=== PATIENT | female | born 2000 | race Hispanic/Latino ===

== ENCOUNTER 2020-02-23 05:50 | Emergency (ER) | payer BC, OTHER ==
[~2020-02-23] VITALS: Ht 165.1 cm; Wt 113.4 kg
[2020-02-23] MEDS ORDERED: LIDOCAINE VISC 2% SOLN 15 ML UDC ONE (06:24)
[2020-02-23] MEDS ORDERED: MAGNESIUM/ALUMINUM/SIMETHICONE 30 ML UDC ONE (06:24)
[2020-02-23] MEDS ORDERED: BELLADONNA ALK/PHENOBARBITAL 5 ML UDC ONE (06:24)
[2020-02-23] MEDS ORDERED: DONNATAL/LIDOCAINE/MAALOX 30 ML SUSP PO ONE (06:45)
[2020-02-23] MEDS ORDERED: BACTRIM DS TAB1 EACH PO (07:11)
== END 2020-02-23 07:54 | disposition home or self-care (01) ==
LOC: FSED 07:12
DX: R10.13 Epigastric pain (principal); R10.11 Right upper quadrant pain; N39.0 Urinary tract infection, site not specified
CPT/HCPCS: 81003; 81025; 99283

== ENCOUNTER 2020-10-22 19:19 | Emergency (ER) | payer BC, OTHER ==
[~2020-10-22] VITALS: Ht 165.1 cm; Wt 132.4 kg
[~2020-10-22 19:19] MED LIST: BACTRIM DS TAB1 EACH PO
[2020-10-22] MEDS ORDERED: ALBUTEROL/IPRATROPIUM 3 ML NEB ONE (19:58)
[2020-10-22] MEDS ORDERED: PROVENTIL HFA6.7 GM INH (20:30)
[2020-10-22] MEDS ORDERED: AZITHROMYCIN250 MG PO (20:30)
[2020-10-22] MEDS ORDERED: PREDNISONE20 MG PO (20:31)
== END 2020-10-22 21:05 | disposition home or self-care (01) ==
LOC: FSED 19:30
DX: R05 Cough (principal); J20.9 Acute bronchitis, unspecified
CPT/HCPCS: 83518; 99282